=== PATIENT | male | born 1955 | race Hispanic/Latino ===

== ENCOUNTER 2020-09-05 16:47 | Emergency (ER) | payer MEDICARE ==
[2020-09-05 19:00] LABS: Basophils % (Auto) 0.5 % (0.0-1.8); Eosinophils % (Auto) 0.6 % (0.0-4.3); Hematocrit 39.3 % (35.5-45.6); Hemoglobin 13.5 gm/dl (11.8-15.2); Lymphocytes # (Auto) 1.6 K/mm3 (1.2-5.4); Lymphocytes % (Auto) 27.4 % (13.4-35.0); Mean Corpuscular HGB Conc 34 % (32-34); Mean Corpuscular Volume 92 fl (84-94); Monocytes # (Auto) 0.6 K/mm3 (0.0-0.8); Monocytes % (Auto) 9.4 % (0.0-7.3); Platelet Count 241 K/mm3 (140-440); Red Blood Count 4.27 M/mm3 (3.65-5.03); Red Cell Distribution Width 12.9 % (13.2-15.2)
[2020-09-05 19:21] LABS: Alanine Aminotransferase 50 units/L (7-56); Albumin 4.9 g/dL (3.9-5); BUN/Creatinine Ratio 19; Blood Urea Nitrogen 15 mg/dL (9-20); Calcium 9.1 mg/dL (8.4-10.2); Hemolysis Index 5
--- NOTE | 2020-09-05 23:20 | Emergency Department Report ---
<ELLY LATIF - Last Filed: 09/06/20 00:48> ED General Adult HPI - General Chief complaint: Abdominal Pain Stated complaint: UNABLE TO URINE Time Seen by Provider: 09/05/20 23:15 Source: patient Mode of arrival: Ambulatory Limitations: No Limitations - History of Present Illness Initial comments: 64-year-old male patient presents to the emergency department with complaints of urinary retention for approximately 8 hours. Patient states he last urinated after lunchtime today. He has been evaluated by urology for urinary retention on previous occasions but is not currently on any medication. He is unsure of his underlying diagnosis. He is not currently on medications for his bladder or prostate. No recent fall, trauma, or injury. Patient has not recently started any new medications. Denies fever, chills, nausea, vomiting, diarrhea, constipation, testicular pain/swelling. Denies all other complaints at this time. - Related Data Home Medications Medication Instructions Recorded Confirmed Last Taken Amlodipine/Valsartan/Hcthiazid 1 each PO DAILY 12/19/15 12/21/15 12/19/15 [[id number]-[id number] 10-160-12.5MG] Mirtazapine [Remeron] 30 mg PO QPM 12/19/15 12/21/15 12/20/15 Primidone [Mysoline] 50 mg PO BID 12/19/15 12/21/15 12/21/15 Quetiapine Fumarate [Seroquel] 600 mg PO QPM 12/19/15 12/21/15 12/20/15 Venlafaxine HCl [Venlafaxine] 150 mg PO DAILY 12/19/15 12/21/15 12/21/15 buPROPion SR [Wellbutrin SR] 200 mg PO BID 12/19/15 12/21/15 12/21/15 donepeziL [Aricept] 5 mg PO QDAY 12/19/15 12/21/15 12/20/15 lamoTRIgine [lamoTRIgine ER] 200 mg PO DAILY 12/19/15 12/21/15 12/21/15 lisinopriL [Zestril] 20 mg PO QDAY 12/19/15 12/21/15 12/21/15 Previous Rx's Medication Instructions Recorded Last Taken Type Meclizine [Antivert] 25 mg PO TID PRN #20 tablet 12/19/15 12/21/15 Rx Ciprofloxacin HCl [Ciprofloxacin 500 mg PO BID 5 Days tablet 09/06/20 Unknown Rx TAB] Tamsulosin [Flomax] 0.4 mg PO QDAY 10 Days cap 09/06/20 Unknown Rx Allergies Allergy/AdvReac Type Severity Reaction Status Date / Time No Known Allergies Allergy Verified 12/21/15 15:07 ED Review of Systems Other: GENERAL: Negative for fever, chills, weight change, anorexia, fatigue. ENT: Negative for ear pain, difficulty hearing, sore throat, nasal congestion, epistaxis. CARDIOVASCULAR: Negative for chest pain, palpitations, lower extremity swelling. PULMONARY: Negative for cough, dyspnea, wheezing, orthopnea, cyanosis. GASTROINTESTINAL: Negative for nausea, vomiting, diarrhea, constipation. GENITOURINARY: Positive for urinary retention. MUSCULOSKELETAL: Negative for joint pain, joint swelling, myalgias, back pain, neck pain. NEUROLOGICAL: Negative for headache, seizure, syncope, paresthesias, weakness. INTEGUMENTARY: Negative for erythema, rash, diaphoresis, laceration, ecchymosis. HEMATOLOGICAL: Negative for hemoptysis, hematemesis, hematochezia, hematuria. PSYCHIATRIC: Negative for hallucinations, suicidal ideation, homicidal ideation, anxiety, depression. ED Past Medical Hx - Past Medical History Hx Hypertension: Yes Hx CVA: (TIA (11/2015)) Hx Congestive Heart Failure: Yes Hx Psychiatric Treatment: Yes (PTSD, depression, anxiety) Hx COPD: Yes Additional medical history: ETOH abuse. 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 esophageal wrap. broken nose. LEFT hand surgery. LEFT rotator cuff. PROSTATE X 2. tonsillectomy - Social History Smoking Status: Current Every Day Smoker Substance Use Type: None - Medications Home Medications: Home Medications Medication Instructions Recorded Confirmed Last Taken Type Amlodipine/Valsartan/Hcthiazid 1 each PO DAILY 12/19/15 12/21/15 12/19/15 History [[id number]-[id number]-Splj 10-160-12.5MG] Meclizine [Antivert] 25 mg PO TID PRN #20 tablet 12/19/15 12/21/15 12/21/15 Rx Mirtazapine [Remeron] 30 mg PO QPM 12/19/15 12/21/15 12/20/15 History Primidone [Mysoline] 50 mg PO BID 12/19/15 12/21/15 12/21/15 History Quetiapine Fumarate [Seroquel] 600 mg PO QPM 12/19/15 12/21/15 12/20/15 History Venlafaxine HCl [Venlafaxine] 150 mg PO DAILY 12/19/15 12/21/15 12/21/15 History buPROPion SR [Wellbutrin SR] 200 mg PO BID 12/19/15 12/21/15 12/21/15 History donepeziL [Aricept] 5 mg PO QDAY 12/19/15 12/21/15 12/20/15 History lamoTRIgine [lamoTRIgine ER] 200 mg PO DAILY 12/19/15 12/21/15 12/21/15 History lisinopriL [Zestril] 20 mg PO QDAY 12/19/15 12/21/15 12/21/15 History Ciprofloxacin HCl [Ciprofloxacin 500 mg PO BID 5 Days tablet 09/06/20 Unknown Rx TAB] Tamsulosin [Flomax] 0.4 mg PO QDAY 10 Days cap 09/06/20 Unknown Rx ED Physical Exam - General Limitations: No Limitations - Other Other exam information: General: Awake and alert. No acute distress. Head: Atraumatic, normocephalic. Eyes: EOMI. Pupils are equal and round. Normal sclera and conjunctiva. ENT: Oral mucosa is moist. Normal pharyngeal exam. Neck: Supple. No lymphadenopathy. Pulmonary: No respiratory distress. Clear to auscultation bilaterally. Cardiac: Regular rate and rhythm. Pulses are palpable and equal bilaterally. No lower extremity cyanosis or edema. Skin: Warm and dry. No rashes. Abdomen: Soft. Bladder distention and suprapubic tenderness without guarding, rigidity, or rebound. Bowel sounds are normal. No organomegaly or masses noted. Back: Normal alignment. No CVA tenderness. Extremities: Symmetrical. Full range of motion intact. Neurological: Alert and oriented, appropriately interactive, no focal deficits. Psych: Cooperative. Appropriate mood and affect. Speech is evenly metered. Thoughts are logically construed. ED Medical Decision Making - Lab Data Result diagrams: 09/05/20 18:38 09/05/20 18:38 - Medical Decision Making Differential diagnosis including but not limited to: pyelonephritis, nephrolithiasis, urinary tract infection, prostatitis, benign prostate enlargement, prostate cancer, acute renal failure On reevaluation, patient is stable and symptoms have improved. Approximately 250 mL of urine obtained following Smyth catheter placement. Urinalysis without evidence of concomitant infection. Patient appears well-hydrated, no distress, afebrile, tolerating oral intake without difficulty. No clinical indication for further diagnostic work-up on an emergent basis at this time. Patient will be discharged home with Flomax and referral to urology for close outpatient follow-up. Patient expressed understanding and is agreeable to plan of care. Strict return precautions provided. Prior to discharge home, patient decided he did not want to leave the emergency department with the Smyth catheter in place. He removed the Smyth catheter himself and subsequently sustained a urethral tear. Bleeding is controlled. Smyth catheter replacement was recommended however patient adamantly refused. He will be prescribed Ciprofloxacin for antibiotic prophylaxis in addition to Flomax. Emphasized the importance of following up with urology next week for definitive management. The patient chooses to refuse placement of Smyth catheter AGAINST MEDICAL ADVICE. The patients ability to make an informed decision has been assessed and it has been determined that the patient has the capacity to comprehend the information about their current medical condition and appreciate the impact of the disease and the consequence of various options for treatment, including forgoing treatment. The patient possesses the ability to evaluate all treatment options, compare the risks and benefits of each option, communicate this choice in a consistent manner over time, and is able to make choices that are not irrational. The patient has been informed about the ideal further testing, treatments, and evaluations that may be indicated during the current emergency department visit as well as any possible alternatives that could be accomplished in a timely manner. The patient is aware of the possible risks of foregoing any or all of these interventions and the patient acknowledges that the decision to leave may result in undesirable consequences. Even through leaving AGAINST MEDICAL ADVICE is not ideal, the patient has been instructed to follow any discharge instructions given, take any medications prescribed, and resume care as soon as possible with another provider. Additionally, it has been clearly stated that the patient is welcome to return at any time to continue care at this facility. Patient's brother is present for the entire duration of the patient's emergency department encounter. He is in agreement with plan of care. Case discussed with Dr. Cotto, attending emergency physician, who personally evaluated the patient and agrees with diagnostic work-up/plan of care. ED Disposition Clinical Impression: Acute urinary retention Urethral tear Qualifiers: Encounter type: initial encounter Qualified Code(s): S37.33XA - Laceration of urethra, initial encounter Disposition: - TO HOME OR SELFCARE Is pt being admited?: No Does the pt Need Aspirin: No Condition: Stable Instructions: Acute Urinary Retention, Male, [id number] Additional Instructions: Take Flomax as directed. Take Cipro as directed. Follow-up with urologist next week. Call Tuesday to schedule an appointment. Return to the emergency department immediately for new or worsening symptoms. Prescriptions: Ciprofloxacin HCl [Ciprofloxacin TAB] 500 mg PO BID 5 Days tablet Tamsulosin [Flomax] 0.4 mg PO QDAY 10 Days cap Referrals: REE MANN MD [Staff Physician] - 3-5 Days KAYLEE INIGUEZ MD [Staff Physician] - 3-5 Days Forms: AMA Form Time of Disposition: 00:44 <JANESSA COTTO III - Last Filed: 09/06/20 01:38> ED Review of Systems ROS: Stated complaint: UNABLE TO URINE Other details as noted in HPI ED Course Vital Signs 09/05/20 09/06/20 17:37 00:50 Temperature 98.1 F 98.2 F Pulse Rate 93 H 77 Respiratory 20 16 Rate Blood Pressure 149/95 Blood Pressure 139/84 [Left] O2 Sat by Pulse 97 100 Oximetry - Reevaluation(s) Reevaluation #1: I reviewed the findings and management of this patient in real-time and I have personally seen and examined this patient and participated in the decision making for this patient with the midlevel. Patient is a 64-year-old male who presents emergency room for abdominal pain. Patient found to have urinary retention. Patient had a Smyth placed. Patient symptoms were relieved by Smyth placement. Patient pulled the Smyth after his bladder was emptied. Patient s tates he does not want to have a Smyth replaced. Patient is bleeding from his penis. Patient states he does not want any further evaluation. Patient refused to have a Smyth replaced. Patient is alert and oriented x4. Patient answering questions properly. Patient is of sound mind and body. I discussed the risk with patient. Patient voiced understanding of the risk. Patient signed AMA form. AMA form signed and witnessed by midlevel and bedside nurse. I examined the patient. Patient's abdominal exam is negative. Patient is nontender. CV exam shows normal S1-S2. Lung sounds are clear. Patient has a small amount of bleeding from his meatus. Even though the patient is leaving the hospital AGAINST MEDICAL ADVICE, a formal discharge will be given. I discussed all results and clinical findings with patient. 09/06/20 01:01 ED Medical Decision Making - Lab Data Result diagrams: 09/05/20 18:38 09/05/20 18:38 Critical care attestation.: If time is entered above; I have spent that time in minutes in the direct care of this critically ill patient, excluding procedure time. ED Disposition Is pt being admited?: No Does the pt Need Aspirin: No
[2020-09-06 00:12] LABS: Bilirubin,Urine NEG (Negative); Blood,Urine NEG (Negative); Color,Urine Yellow (Yellow); Mucus,Urine 1+ /HPF
[2020-09-06 00:50] VITALS: BP 139/84
== END 2020-09-06 01:26 | disposition home or self-care (01) ==
LOC: ED 16:47
DX: S37.33XA Laceration of urethra, initial encounter (principal); R33.9 Retention of urine, unspecified; I11.0 Hypertensive heart disease with heart failure; I50.9 Heart failure, unspecified; J44.9 Chronic obstructive pulmonary disease, unspecified; F17.200 Nicotine dependence, unspecified, uncomplicated; Z90.49 Acquired absence of other specified parts of digestive tract; Z98.890 Other specified postprocedural states; Z79.899 Other long term (current) drug therapy; X58.XXXA Exposure to other specified factors, initial encounter; Y93.89 Activity, other specified; Y92.89 Other specified places as the place of occurrence of the external cause; Y99.8 Other external cause status
CPT/HCPCS: 36415; 51702; 80053; 81001; 85025